=== PATIENT | male | born 1970 | race African-American/Black ===

== ENCOUNTER 2018-04-02 14:59 | Emergency (ER) | payer MEDICAID | END 2018-04-02 17:20 | disposition left against medical advice (07) | LOC: ER 14:59 | DX: Z53.21 Procedure and treatment not carried out due to patient leaving prior to being seen by health care provider (principal) ==

== ENCOUNTER 2018-06-09 09:19 | Emergency (ER) | payer MEDICAID ==
[~2018-06-09] VITALS: Ht 167.6 cm; Wt 94.0 kg
[2018-06-09 12:17] VITALS: BP 140/98
== END 2018-06-09 12:18 | disposition home or self-care (01) ==
LOC: ER 09:19
DX: L03.311 Cellulitis of abdominal wall (principal); I10 Essential (primary) hypertension
CPT/HCPCS: 99282; 99283

== ENCOUNTER 2019-11-07 10:23 | Emergency (ER) | payer MEDICAID ==
[~2019-11-07] VITALS: Ht 167.6 cm; Wt 104.0 kg
[2019-11-07] MEDS ORDERED: IBUPROFEN 600MG TABLET PO ONE (12:30)
[2019-11-07 13:34] VITALS: BP 138/89
== END 2019-11-07 13:35 | disposition home or self-care (01) ==
LOC: ER 11:18
DX: M79.18 Myalgia, other site (principal); M25.511 Pain in right shoulder; V89.9XXA Person injured in unspecified vehicle accident, initial encounter; Y93.89 Activity, other specified; Y92.89 Other specified places as the place of occurrence of the external cause; Y99.8 Other external cause status
CPT/HCPCS: 71101; 99283